=== PATIENT | female | born 1995 | race African-American/Black ===

== ENCOUNTER 2016-09-12 04:09 | Emergency (ER) | payer OTHER ==
[~2016-09-12] VITALS: Ht 167.6 cm; Wt 62.6 kg
--- NOTE | ~2016-09-12 | EKG ---
[address] [address] [place] [address] ELECTROCARDIOGRAM REPORT Name: JOSUE MARKS Room #: [facility]P [facility]ENTERShabbir#: [id number] Admission: 09/12/16 Attend Phys: Discharge: 09/12/16 Date of : [birth year] Report #: [id number] THIS REPORT FOR: //name// [facility] ED Test Date: 2016-09-12 Test Time: 04:37:09 Pat Name: JOSUE MARKS Department: Room: Gender: F Logging Contractor: [id number] : 1995 Requested By: Oscar Del Cid Order Number: [id number] MD: Keanu Worley Measurements Intervals [place] Rate: 88 P: 50 ND: 147 QRS: 46 QRSD: 91 T: 28 QT: 356 QTc: 431 Interpretive Statements Sinus rhythm Ventricular premature complex ST elev, probable normal early repol pattern No previous ECG available for comparison Electronically Signed On 09-12-2016 8:04:09 CDT by Keanu Worley [email or web address] <ELECTRONICALLY SIGNED> By: Keanu Worley MD, [facility] 09/12/16 0804 [id number] Keanu Worley MD, FACC /EPI
[2016-09-12] MEDS ORDERED: NAPROSYN500 MG PO (04:46)
[2016-09-12] MEDS ORDERED: ULTRAM 50MG TAB50 MG PO (04:46)
[2016-09-12 05:25] VITALS: BP 113/66
== END 2016-09-12 05:26 | disposition home or self-care (01) ==
LOC: ER 04:09
DX: M94.0 Chondrocostal junction syndrome [Tietze] (principal)